=== PATIENT | female | born 1930 | race African-American/Black ===

== ENCOUNTER → 2016-11-14 | Outpatient (CLI) | payer MEDICARE, MEDICAID ==
[~2016-11-14] MED LIST: AMLO10TA4 PO; AMLO10TA80 PO; AZOPT BOTHEYE; CARI350T27; CLOP75TA2 PO; DOCU-138 PO; ESTR0.6264; FS300 PO; FURO40TA5; Furosemide PO; HYDR-4005 PO; HYDR-4135 PO; Hydralazine Hcl PO; LABE200T28 PO; LATA2.5D2; Labetalol Hcl PO; TRAV2.5D; VALS320T9; XALAO BOTHEYE
== END | disposition home or self-care (01) ==
LOC: US 09:52
PROVIDERS: ATTEND Internal Medicine Nephrology
DX: M79.89 Other specified soft tissue disorders (principal); R60.0 Localized edema
CPT/HCPCS: 93970